=== PATIENT | male | born 1950 | race Caucasian/White ===

== ENCOUNTER → 2018-08-04 | Outpatient (CLI) | payer OTHER ==
[~2018-08-04] VITALS: Ht 175.3 cm; Wt 81.6 kg
[~2018-08-04] MED LIST: CALCOR TABLET1 EACH PO; CENTRUM SILVER1 EAC4 PO; [UNRECOGNIZED DRUG - OTHER] PO
--- NOTE | ~2018-08-04 | P ---
[facility] [place] [address] PROCEDURE REPORT Name: EDMUNDO HERRERA Room #: REG [facility].#: [id number] Admission: 08/04/18 ������������������ Attend Phys: Glynn Jean Baptiste MD Discharge: ������������������ Date of : 46 Report #: [id number] THIS REPORT FOR: //name// CC: Glynn Jane MD BRIEF HISTORY: The patient is a 68-year-old male for his initial screening colonoscopy. PREOPERATIVE DIAGNOSIS: Screening colonoscopy. POSTOPERATIVE DIAGNOSES: 1. Moderate to severe diverticulosis coli. 2. Small internal hemorrhoids and anal tag. MEDICATIONS: Deep sedation with propofol per Anesthesia. SPECIMEN: None. ESTIMATED BLOOD LOSS: None. PROCEDURE: Colonoscopy to cecum and terminal ileum. FINDINGS: Prior to propofol sedation, procedure of colonoscopy discussed with the patient as well as potential risks and its complications. He indicates he understands and desires to proceed. DESCRIPTION OF PROCEDURE: With the patient in left lateral decubitus position, digital examination was completed, which revealed anal tag that was soft and mobile. Subsequently, the Olympus video colonoscope was introduced into the rectum and advanced under direct vision to the cecum. Done with minimal difficulty. The cecum was identified by the ileocecal valve and the appendiceal orifice. I was able to advance the tip of the scope into the mouth of the ileocecal valve. We were able to visualize a villous pattern, but could not deeply intubate due to looping of the scope. At that point, the scope was slowly withdrawn and careful circumferential views obtained including retroflexing the scope in the ascending colon. Upon slow withdrawal of the scope, the prep was good. The mucosa was within normal limits, normal vascular pattern, normal light reflex. He was noted to have moderate diverticular disease of the cecum and ascending colon. No diverticular disease was seen in the transverse colon. There was moderate to severe left-sided diverticular disease with greatest area involving the distal sigmoid colon. There was no endoscopic evidence of diverticulitis or stricturing. In addition, the colonic mucosa throughout the entire colon was normal. There was no evidence of inflammatory disease or neoplastic disease. No polyps were seen on today's exam. The scope was withdrawn in the rectum. Upon retroflexion, the anal tag [address] [address] PROCEDURE REPORT Name: EDMUNDO HERRERA [id number] Admission: 08/04/18 ������������������ Attend Phys: Glynn Jean Baptiste MD Discharge: ������������������ Date of : 46 Report #: [id number] was seen. It appeared to be fairly typical, mobile and not friable. Small internal hemorrhoids were seen as well. Scope was withdrawn. The patient tolerated the procedure well. CONDITION OF THE PATIENT UPON DISCHARGE: Following procedure, the patient drowsy, arousable and conversant and will be discharged to home when fully ambulatory. INSTRUCTIONS TO THE PATIENT AND FAMILY AT THE TIME OF DISCHARGE: No neoplastic lesions seen. Suggest high fiber diet. He has the anal tag as noted. If this tag causes any issues, he may consider surgical removal, although that is not absolutely necessary. He will follow up with Dr. Israel Jane and return to see me in followup as needed. We will also suggest followup colon exam in 10 years for average risk. This was the patient's first colonoscopy. Withdrawal time from the cecum was 8 minutes 41 seconds. ��������������������������������������������� ���������������������������������������� By: ��������������������������������������������� 0900 0042 Glynn Jean Baptiste MD /nt
== END ==
LOC: GI 07:42
DX: Z12.11 Encounter for screening for malignant neoplasm of colon (principal); K57.30 Diverticulosis of large intestine without perforation or abscess without bleeding; K64.8 Other hemorrhoids; K64.4 Residual hemorrhoidal skin tags; Z87.891 Personal history of nicotine dependence
CPT/HCPCS: 62110; 62900

== ENCOUNTER → 2020-05-06 | Outpatient (CLI) | payer OTHER | LOC: MRI 08:03 | PROVIDERS: ATTEND Family Medicine | DX: G31.89 Other specified degenerative diseases of nervous system (principal); G93.89 Other specified disorders of brain; R40.4 Transient alteration of awareness ==